=== PATIENT | female | born 1950 | race Caucasian/White ===

== ENCOUNTER 2018-12-27 14:50 | Emergency (ER) | payer MEDICARE, OTHER | END 2018-12-27 15:46 | disposition home or self-care (01) | LOC: SCSER 14:50 | DX: Z00.00 Encounter for general adult medical examination without abnormal findings (principal) | CPT/HCPCS: 99281 ==

== ENCOUNTER 2019-08-13 08:01 | Outpatient (CLI) | payer MEDICARE, OTHER ==
--- NOTE | 2019-08-13 08:42 | BD ---
DEXA BONE DENSITY: HISTORY: Osteoporosis. FINDINGS: Lumbar Spine: BMD (g/cm2) L1 0.869 T-Score: -1.1 0.8 L2 0.905 T-Score: -1.1 0.9 L3 0.952 T-Score: -1.2 1.0 L4 0.920 T-Score: -1.3 1.0 L1-L4 0.912 T-Score: -1.2 0.9 Femoral Neck: 0.876 T-Score: 0.2 2.0 Total Femur: 0.923 T-Score: -0.2 1.3 Impression: Lumbar Spine: WHO calcification osteopenia; fracture risk increased. Femoral Neck: WHO calcification normal. Ten-year fracture risk for a major osteoporotic fracture 9.6%, hip fracture 0.4%. POS: OFF
== END 2019-08-13 08:02 | disposition home or self-care (01) ==
LOC: BICMAMMO 08:01
PROVIDERS: ATTEND Internal Medicine Rheumatology
DX: M81.0 Age-related osteoporosis without current pathological fracture (principal); M85.88 Other specified disorders of bone density and structure, other site
CPT/HCPCS: 77080

== ENCOUNTER 2019-08-18 10:21 | Outpatient (CLI) | payer MEDICARE, OTHER ==
--- NOTE | 2019-08-18 10:35 | RAD ---
CHEST 2 VIEWS: HISTORY: Rheumatoid arthritis.. COMPARISON: 11/20/2011. FINDINGS: Cardiac silhouette is upper limits of normal in size. Pulmonary vasculature are unremarkable. Lungs are slightly hyperinflated. Scattered areas of interstitial thickening similar in appearance to the prior study. Mediastinum is midline. No lobar consolidation, pneumothorax, or pleural fluid evident. IMPRESSION : Widespread mild interstitial thickening and other chronic-type findings are stable. No active cardiop ulmonary abnormalities are demonstrated. Transcribed Date/Time: 08/18/2019 12:36 PM
== END 2019-08-18 10:22 | disposition home or self-care (01) ==
LOC: BICRAD 10:21
PROVIDERS: ATTEND Internal Medicine Rheumatology
DX: M05.79 Rheumatoid arthritis with rheumatoid factor of multiple sites without organ or systems involvement (principal); J84.89 Other specified interstitial pulmonary diseases
CPT/HCPCS: 71046

== ENCOUNTER 2020-01-13 12:53 | Outpatient (CLI) | payer MEDICARE, OTHER ==
--- NOTE | 2020-01-13 14:02 | RAD ---
RADIOGRAPH CHEST 2 VIEWS: 01/13/20 HISTORY: 69-year-old female with dyspnea. FINDINGS: There is no air space density, pulmonary edema, pleural effusion, or pneumothorax. No interval change since 08/18/19. IMPRESSION: No acute pulmonary findings. jn [] POS: [facility]
== END 2020-01-13 12:54 | disposition home or self-care (01) ==
LOC: BICRAD 12:53
PROVIDERS: ATTEND Internal Medicine Pulmonary Disease
DX: R06.00 Dyspnea, unspecified (principal)
CPT/HCPCS: 71046

== ENCOUNTER 2022-12-31 09:20 | Outpatient (CLI) | payer MEDICARE, OTHER | END 2022-12-31 09:21 | disposition home or self-care (01) | LOC: BICMAMMO 09:20 | PROVIDERS: ATTEND Internal Medicine Rheumatology | DX: M81.0 Age-related osteoporosis without current pathological fracture (principal); M85.89 Other specified disorders of bone density and structure, multiple sites | CPT/HCPCS: 77080 ==

== ENCOUNTER 2023-11-05 11:10 | Outpatient (CLI) | payer MEDICARE, OTHER | END 2023-11-05 11:11 | disposition home or self-care (01) | LOC: BICRAD 11:10 | PROVIDERS: ATTEND Family Medicine | DX: G62.9 Polyneuropathy, unspecified (principal); M47.816 Spondylosis without myelopathy or radiculopathy, lumbar region; M16.12 Unilateral primary osteoarthritis, left hip | CPT/HCPCS: 72100 ==

== ENCOUNTER 2025-01-01 09:23 | Outpatient (CLI) | payer MEDICARE, OTHER | END 2025-01-01 09:24 | disposition home or self-care (01) | LOC: SCSBT 09:23 | PROVIDERS: ATTEND Internal Medicine Rheumatology | DX: M81.0 Age-related osteoporosis without current pathological fracture (principal); M17.11 Unilateral primary osteoarthritis, right knee; M85.89 Other specified disorders of bone density and structure, multiple sites | CPT/HCPCS: 73565; 77080 ==